=== PATIENT | female | born 1990 | race Caucasian/White ===

== ENCOUNTER → 2024-09-23 | Outpatient (CLI) | payer OTHER ==
[2024-09-23 15:58] LABS: HEMATOCRIT 39.7 % (36.0-47.0); MEAN CORPUSCULAR HEMOGLOBIN 32.6 pg (27.0-33.0); MEAN CORPUSCULAR HGB CONC 35.3 g/dl (32.0-36.5); MEAN CORPUSCULAR VOLUME 92.5 fl (80.0-96.0); PLATELET COUNT, AUTOMATED 285 10^3/uL (150-450); RED BLOOD COUNT 4.29 10^6/uL (4.00-5.40); WHITE BLOOD COUNT 14.1 10^3/uL (4.0-10.0)
[2024-09-23 16:15] LABS: HEMOGLOBIN A1c 5.2 % (4.0-6.0)
[2024-09-23 16:36] LABS: LDH LACTATE DEHYDROGENASE 139 U/L (120-246)
[2024-09-23 16:37] LABS: ALT/SGPT 11 U/L (7.0-40); AST/SGOT < 8 U/L (<34); BILIRUBIN,TOTAL 0.4 MG/DL (0.3-1.2); CREATININE FOR GFR 0.58 MG/DL (0.55-1.30); GLOMERULAR FILTRATION RATE > 90.0 (>60)
[2024-09-23 16:59] LABS: HIV 1&2 SCREEN NEGATIVE (NEGATIVE)
[2024-09-23 17:07] LABS: HEPATITIS C VIRUS ABY INDEX 0.03 INDEX (<0.8)
== END ==
LOC: M PLALAB 14:21
PROVIDERS: ATTEND Nurse Practitioner Family
DX: Z34.80 Encounter for supervision of other normal pregnancy, unspecified trimester (principal); Z87.59 Personal history of other complications of pregnancy, childbirth and the puerperium

== ENCOUNTER → 2024-09-23 | Outpatient (REF) | payer OTHER | LOC: M PLALAB 14:11 | PROVIDERS: ATTEND Nurse Practitioner Family | DX: Z53.9 Procedure and treatment not carried out, unspecified reason (principal) ==

== ENCOUNTER → 2024-11-24 | Outpatient (REF) | payer OTHER ==
[2024-11-24 18:37] LABS: TOTAL PROTEIN,RANDOM URINE 31.7 MG/DL (0.0-14.0)
[2024-11-24 19:22] LABS: Trichomonas vaginalis (AMP) NOT DETECTED (NEGATIVE)
[2024-11-24 19:45] LABS: GC DNA AMPLIFICATION NEGATIVE (NEGATIVE)
== END ==
LOC: M PLALAB 14:37
PROVIDERS: ATTEND Nurse Practitioner Family
DX: Z34.80 Encounter for supervision of other normal pregnancy, unspecified trimester (principal); Z86.32 Personal history of gestational diabetes

== ENCOUNTER → 2024-11-30 | Outpatient (CLI) | payer OTHER | LOC: M WHC 11:31 | PROVIDERS: ATTEND Nurse Practitioner Family | DX: Z34.82 Encounter for supervision of other normal pregnancy, second trimester (principal); Z3A.22 22 weeks gestation of pregnancy ==

== ENCOUNTER → 2025-01-18 | Outpatient (CLI) | payer OTHER | LOC: M WHC 08:52 | PROVIDERS: ATTEND Nurse Practitioner Family | DX: Z34.80 Encounter for supervision of other normal pregnancy, unspecified trimester (principal) ==

== ENCOUNTER → 2025-02-02 | Outpatient (CLI) | payer OTHER ==
[2025-02-02 16:48] LABS: PLATELET COUNT, AUTOMATED 231 10^3/uL (150-450)
[2025-02-02 17:47] LABS: HIV 1&2 SCREEN NEGATIVE (NEGATIVE)
[2025-02-02 17:55] LABS: HEPATITIS C VIRUS ABY INDEX < 0.02 INDEX (<0.8)
[2025-02-02 18:29] LABS: Trichomonas vaginalis (AMP) NOT DETECTED (NEGATIVE)
[2025-02-02 18:53] LABS: GC DNA AMPLIFICATION NEGATIVE (NEGATIVE)
== END ==
LOC: M PLALAB 15:01
PROVIDERS: ATTEND Nurse Practitioner Family
DX: Z34.80 Encounter for supervision of other normal pregnancy, unspecified trimester (principal)

== ENCOUNTER 2025-02-28 05:08 | Emergency (ER) | payer OTHER ==
[2025-02-28] MEDS ORDERED: PRENTAB9 PO (06:25)
[2025-02-28] MEDS ORDERED: LABE100T6 PO (21:03)
== END 2025-02-28 06:49 | disposition admitted as inpatient to this hospital (09) ==
LOC: M ED 05:08
DX: O60.14X0 Preterm labor third trimester with preterm delivery third trimester, not applicable or unspecified (principal); Z79.899 Other long term (current) drug therapy

== ENCOUNTER 2025-02-28 05:58 | Inpatient (IN) | payer OTHER ==
[2025-02-28] VITALS (34 sets, daily range): BP systolic 120–181; BP diastolic 68–111
[~2025-02-28] VITALS: Ht 170.2 cm; Wt 100.0 kg
[2025-02-28] MEDS ORDERED: MOM 30 ML SUSPENSION UDC PO PRN (06:25)
[2025-02-28] MEDS ORDERED: IBUPROFEN 600 MG TAB PO PRN (06:25)
[2025-02-28] MEDS ORDERED: CALCIUM CARBONATE 500 MG CHEW U/D PO PRN (06:25)
[2025-02-28] MEDS ORDERED: RHOGAM 300MCG (1500IU) INJ IM SCH (06:25)
[2025-02-28] MEDS ORDERED: ACETAMINOPHEN 325 MG TAB PO PRN (06:25)
[2025-02-28] MEDS ORDERED: ANUSOL HC CREAM 30 GM TOP PRN (06:25)
[2025-02-28] MEDS ORDERED: HOME MED LIST COMPLETE! XX SCH (06:25)
[2025-02-28] MEDS ORDERED: DIBUCAINE 1% OINTMENT 30 GM TOP PRN (06:25)
[2025-02-28] MEDS ORDERED: DOCUSATE SODIUM 100 MG CAPSULE PO PRN (06:25)
[2025-02-28] MEDS ORDERED: PRENTAB9 PO (06:25)
[2025-02-28] MEDS: OXYTOCIN DRIP 30 UNITS in IV 1 EA IV SCH (06:45)
[2025-02-28] MEDS: KETOROLAC 30 MG/ML 1 ML VIAL IV ONE (06:50)
[2025-02-28] MEDS: ACETAMINOPHEN 500 MG TAB PO PRN (07:25)
[2025-02-28 09:19] LABS: BASO # 0.0 10^3/uL (0.0-0.2); BASO % 0.3 % (0.0-1.0); EOS # 0.1 10^3/uL (0.0-0.5); EOS % 0.5 % (0.0-3.0); LYMPH # 3.4 10^3/uL (1.5-5.0); LYMPH % 23.8 % (24.0-44.0); MONO # 0.6 10^3/uL (0.0-0.8); MONO % 4.3 % (2.0-8.0); NEUTROPHILS # 10.2 10^3/uL (1.5-8.5); NEUTROPHILS % 70.8 % (36.0-66.0); PLATELET COUNT, AUTOMATED 279 10^3/uL (150-450)
[2025-02-28 09:27] LABS: LDH LACTATE DEHYDROGENASE 205 U/L (120-246)
[2025-02-28 09:28] LABS: ALT/SGPT 21 U/L (7.0-40); AST/SGOT 28 U/L (<34); CREATININE FOR GFR 0.69 MG/DL (0.55-1.30); GLOMERULAR FILTRATION RATE > 90.0 (>60); GLUCOSE,RANDOM 97 MG/DL (LESS THAN 200)
[2025-02-28 09:30] LABS: THYROXINE (T4) 14.6 UG/DL (4.5-10.9)
[2025-02-28 10:33] LABS: ESTIMATED AVERAGE GLUCOSE 105.0 MG/DL (60-110)
[2025-02-28] MEDS: PRENATAL VITAMINS CHEWABLE TABLET PO SCH (11:19)
[2025-02-28 11:55] LABS: TOTAL PROTEIN,RANDOM URINE 108.3 MG/DL (0.0-14.0)
[2025-02-28 11:56] LABS: AMPHETAMINES URINE REFLEX NEGATIVE (NEGATIVE); BARBITURATES URINE REFLEX NEGATIVE (NEGATIVE); COCAINE METABOLITE URINE REFLE NEGATIVE (NEGATIVE)
[2025-02-28 11:57] LABS: BENZODIAZEPINES URINE REFLEX NEGATIVE (NEGATIVE); METHADONE URINE REFLEX NEGATIVE (NEGATIVE); OPIATES URINE REFLEX NEGATIVE (NEGATIVE); PHENCYCLIDINE URINE REFLEX NEGATIVE (NEGATIVE)
[2025-02-28 12:39] LABS: CANNABINOIDS URINE REFLEX PENDING CONFIRMATION (NEGATIVE)
[2025-02-28] MEDS: LABETALOL 100 MG TAB PO SCH (14:44)
[2025-02-28] MEDS: IBUPROFEN 800 MG TAB PO PRN (16:19)
[2025-02-28] MEDS ORDERED: LABE100T6 PO (21:03)
[2025-03-01 23:47] LABS: CARDIOLIPIN IGA ANTIBODY < 2.0 APL-U/mL (<20.0); CARDIOLIPIN IGG ANTIBODY < 2.0 GPL-U/mL (<20.0); CARDIOLIPIN IGM ANTIBODY < 2.0 MPL-U/mL (<20.0)
[2025-03-02] MEDS ORDERED: MEASLES,MUMPS,RUBELLA VACCINE INJ (MMR-II) SC.IMMUN ONE (09:00)
[2025-03-03 07:33] LABS: BETA-2 GLYCOPROTEIN I ABY IGA < 2.0 U/mL (<20.0); BETA-2 GLYCOPROTEIN I ABY IGG < 2.0 U/mL (<20.0); BETA-2 GLYCOPROTEIN I ABY IGM < 2.0 U/mL (<20.0)
[2025-03-03 20:07] LABS: Carboxy THC Conf, MS, UR >300 ng/mL (Cutoff=10)
[2025-03-04 08:36] LABS: DRVV SCREEN 31.2 SECONDS
[2025-03-04 08:44] LABS: PTT LUPUS TYPE ANTICOAG SCREEN 0.81 (0-1.20)
[2025-03-04 23:52] LABS: ANTI PARVO VIRUS LEVEL IGG 1.3 (<0.9); ANTI PARVO VIRUS LEVEL IgM 0.1 (<0.9)
== END 2025-02-28 21:30 | disposition home or self-care (01) | DRG 544 ==
LOC: M LDI 05:58
PROVIDERS: ADMIT Obstetrics & Gynecology; ATTEND Obstetrics & Gynecology
PROC: 10D17ZZ Extraction of Products of Conception, Retained, Via Natural or Artificial Opening (ICD-10-PCS; principal; 2025-02-28)
DX: O73.0 Retained placenta without hemorrhage (principal); O24.13 Pre-existing type 2 diabetes mellitus, in the puerperium; O13.5 Gestational [pregnancy-induced] hypertension without significant proteinuria, complicating the puerperium